=== PATIENT | female | born 1975 | race Caucasian/White ===

== ENCOUNTER 2024-03-01 16:10 | Outpatient (CLI) | payer BC, SELFPAY | END 2024-03-01 16:11 | disposition home or self-care (01) | PROVIDERS: PCP Family Medicine; Visit Provider Family Medicine | DX: E55.9 Vitamin D deficiency, unspecified (principal); F10.90 Alcohol use, unspecified, uncomplicated; Z13.220 Encounter for screening for lipoid disorders; Z13.29 Encounter for screening for other suspected endocrine disorder | CPT/HCPCS: 80053; 80061; 82306; 82977; 84443 ==

== ENCOUNTER 2024-03-31 08:28 | Outpatient (CLI) | payer BC, SELFPAY ==
--- NOTE | 2024-03-31 08:45 | MM_ITS ---
Patient: MARLEN SANABRIA Facility:?[facility] Patient ID:?[id number] Site Patient ID:?[id number]. Site :?[id number] Study:?XRay-Breast Bilateral 3D W/CAD-03/31/2024 9:00:24 AM Ordering Physician:Deanne Final Report: BILATERAL SCREENING MAMMOGRAM WITH COMPUTER-AIDED DETECTION AND TOMOSYNTHESIS TECHNIQUE: CC and MLO views were obtained. These mammographic images have been obtained using full-field digital technique. These mammographic images were interpreted with the benefit of computer-aided detection. Breast Tomosynthesis was used in this interpretation. COMPARISON FILM: 03/24/22, 11/26/20, 09/13/19. FINDINGS: The breasts are heterogeneously dense, which may obscure small masses. IMPRESSION: There is no radiographic evidence for malignancy. ASSESSMENT: BI-RADS Category 1: Negative RECOMMENDATION: Routine screening mammogram in 1 year. A lay language report of this examination will be provided to the patient. Girish Melendez M.D. Diagnostic Radiologist [email or web address] DSM/sp R& Transcribed: 3:40 p.m. SP/Dictated by: Girish Melendez MD @ 04/03/2024 11:55:00 AM Signed by:?Girish Melendez MD @04/03/2024 4:00:48 PM (Electronic Signature)
== END 2024-03-31 08:29 | disposition home or self-care (01) ==
LOC: MAMMO 08:30
PROVIDERS: PCP Family Medicine; Visit Provider Family Medicine
DX: Z12.31 Encounter for screening mammogram for malignant neoplasm of breast (principal); R92.2 Inconclusive mammogram
CPT/HCPCS: 77063; 77067

== ENCOUNTER 2024-05-16 08:36 | Outpatient (CLI) | payer BC, SELFPAY ==
--- NOTE | 2024-05-16 09:46 | W.ANESCHARGE ---
Anesthesia Charges Start Date/Time Anesthesia Start Date: 05/16/24 Anesthesia Start Time: 09:19 Stop Date/Time Anesthesia Stop Date: 05/16/24 Anesthesia Stop Time: 09:43
--- NOTE | 2024-05-16 10:48 | W.ANESCHARGE ---
Anesthesia Charges Start Date/Time Anesthesia Start Date: 05/16/24 Anesthesia Start Time: 09:19 Stop Date/Time Anesthesia Stop Date: 05/16/24 Anesthesia Stop Time: 09:43
== END 2024-05-16 08:37 | disposition home or self-care (01) ==
LOC: OP CLINIC 08:36
PROVIDERS: PCP Family Medicine; Visit Provider Internal Medicine
DX: Z12.11 Encounter for screening for malignant neoplasm of colon (principal)
CPT/HCPCS: 00811; 00812; 45378; J2704

== ENCOUNTER 2024-06-21 07:08 | Outpatient (CLI) | payer BC, SELFPAY ==
--- NOTE | 2024-06-21 07:15 | CRLHL7_ITS ---
For Patients: As a result of the Century Cures Act, medical imaging exams and procedure reports are released immediately into your electronic medical record. You may view this report before your referring provider. If you have questions, please contact your health care provider. INDICATION: Polyp of cervix COMPARISON: none TECHNIQUE: 2D celaya scale and color Doppler images were acquired of the pelvis using a transabdominal and transvaginal approach. FINDINGS: Sonographic images demonstrate a normal size and smooth outer contour of the uterus. Uterus measures 9.7 cm in length by 4.6 cm in AP diameter by 5.8 cm in transverse dimension. The myometrium has a normal uniform echotexture. The endometrial lining measures 10 mm in composite thickness. Tiny calcification associated with the posterior endometrium measuring 2 millimeters. No endometrial fluid. The right ovary measures 3.5 x 2.6 x 2.8 cm in size and the left ovary measures 3.2 x 1.9 x 2.3 cm. The ovaries demonstrate normal arterial and venous blood flow on color Doppler analysis. There are no suspicious fluid collections within the cul-de-sac. Simple cyst right ovary measures 1.9 x 1.6 x 2.2 cm. IMPRESSION: No uterine fibroid. Endometrial thickness 1 cm. No endometrial fluid. Dictated by Girish Melendez MD @ 06/22/2024 7:16:08 AM (Electronically Signed)
== END 2024-06-21 07:09 | disposition home or self-care (01) ==
LOC: US 07:08
PROVIDERS: PCP Family Medicine; Visit Provider Obstetrics & Gynecology
DX: N84.1 Polyp of cervix uteri (principal); R93.89 Abnormal findings on diagnostic imaging of other specified body structures
CPT/HCPCS: 76830; 76856

== ENCOUNTER 2024-07-11 09:46 | Outpatient (CLI) | payer BC, SELFPAY | END 2024-07-11 09:47 | disposition home or self-care (01) | LOC: NFLDREF 14:26 | PROVIDERS: PCP Family Medicine; Referring Provider Family Medicine; Visit Provider Family Medicine | DX: M81.0 Age-related osteoporosis without current pathological fracture (principal); E55.9 Vitamin D deficiency, unspecified | CPT/HCPCS: 82306 ==

== ENCOUNTER 2025-03-16 07:36 | Outpatient (CLI) | payer BC, SELFPAY | END 2025-03-16 07:37 | disposition home or self-care (01) | LOC: NFLDREF 03-19 04:05 | PROVIDERS: PCP Family Medicine; Referring Provider Family Medicine; Visit Provider Family Medicine | DX: E55.9 Vitamin D deficiency, unspecified (principal); R53.83 Other fatigue | CPT/HCPCS: 80053; 82306 ==

== ENCOUNTER 2025-09-17 14:57 | Outpatient (CLI) | payer BC, SELFPAY ==
--- NOTE | 2025-09-17 15:00 | CRLHL7_ITS ---
For Patients: As a result of the Century Cures Act, medical imaging exams and procedure reports are released immediately into your electronic medical record. You may view this report before your referring provider. If you have questions, please contact your health care provider. INDICATION: BILATERAL SCREENING MAMMOGRAM, ASYMPTOMATIC 50 Y/O FEMALE COMPARISON: 03/31/2024, 03/24/2022, 11/26/2020 TECHNIQUE: Digital mammogram in CC and MLO projections including computer-aided detection (CAD) and tomosynthesis. BREAST COMPOSITION: The breasts are heterogeneously dense, which may obscure small masses. FINDINGS: No suspicious findings. ASSESSMENT: BI-RADS 1 Negative RECOMMENDATION: Annual screening mammogram. A lay language report of this examination will be provided to the patient. Dictated by: Girish Melendez MD @ 09/18/2025 09:35:01 (Electronically Signed)
== END 2025-09-17 14:58 | disposition home or self-care (01) ==
LOC: MAMMO 14:57
PROVIDERS: PCP Family Medicine; Visit Provider Family Medicine
DX: Z12.31 Encounter for screening mammogram for malignant neoplasm of breast (principal); R92.333 Mammographic heterogeneous density, bilateral breasts
CPT/HCPCS: 77063; 77067